=== PATIENT | male | born 1955 | race Caucasian/White ===

== ENCOUNTER 2017-03-19 14:30 | Emergency (ER) | payer OTHER ==
[~2017-03-19] VITALS: Ht 180.3 cm; Wt 83.9 kg
[2017-03-19 14:36] VITALS: Ht 180.3 cm; Wt 83.9 kg
[2017-03-19] MEDS ORDERED: LOSA50TA6 PO (14:54)
[2017-03-19] MEDS ORDERED: AMLO2.5T PO (14:54)
--- NOTE | 2017-03-19 14:55 | EMERGENCY ROOM VISIT NOTE ---
History First contact with patient: 14:39 Chief Complaint: MEDICATION REFILL REQUEST Stated Complaint: MEDICATION REFILL History of Present Illness The patient is a 62 year old male who presents to the Emergency Room requesting a refill of his blood pressure medication. The patient presents with his son-in -law. He has been visiting for the past 3 months and is returning to [facility] in 10 days. He takes amlodipine/losartan and only has 6 pills left. He is requesting an additional prescription to last him until he returns home and can buy the medication. He asked the pharmacy, but they told him he would need a prescription for this. He denies any chest pain, shortness of breath, headache or confusion. Review of Systems A complete 10 point review of systems was reviewed with the patient with pertinent positives and negatives as per history of present illness. All else were negative. Social History Smoking Status: Never Smoker Physical Exam Vital Signs Date Time Temp Pulse Resp B/P (MAP) Pulse Ox O2 Delivery O2 Flow Rate FiO2 03/19/17 14:36 36.7 74 16 164/89 96 Room Air Physical Exam VITALS: Vitals are noted on the nurse's note and reviewed by myself. Vital signs stable. GENERAL: This is a 62-year-old male, in no acute distress, nondiaphoretic, well- developed well-nourished. HEART: Regular rate and rhythm without murmurs gallops or rubs. LUNGS: Clear to auscultation bilaterally without wheezes, rales or rhonchi. NEURO: Patient was alert and oriented to person place and time. Medical Decision & Procedures Medical Decision The patient was evaluated as above. He has the remaining medication with him. He takes amlodipine 2.5/losartan 50 mg daily for hypertension. He was given an additional prescription for 1 week worth of medication. He is asymptomatic at this time. He was encouraged to follow-up with his primary care provider when he returns to [facility]. He verbalized understanding and was discharged home in good condition. Medication Reconcilliation Current Medication List: was personally reviewed by me Blood Pressure Screening Patient's blood pressure: Elevated blood pressure Blood pressure disposition: Elevated BP felt to be situational Impression Primary Impression: Encounter for medication refill Departure Information Dispostion Home / Self-Care Condition GOOD Prescriptions Losartan Potassium (COZAAR) 50 Mg Tab 1 TAB PO DAILY for 7 Days, #7 TAB Prov: Keshia Culp PA-C 03/19/17 Amlodipine (Norvasc) 2.5 Mg Tab 2.5 MG PO DAILY for 7 Days, #7 TAB Prov: Keshia Culp PA-C 03/19/17 Referrals No Doctor, Assigned (PCP) Patient Instructions My [facility] Additional Instructions Take 1 tablet of the amlodipine and 1 tablet of the losartan daily. The combination medication that he take is not available in the [place]. This is likely need to take 2 medications instead of 1. Follow-up with your primary care provider when you return to [facility].
[2017-03-19] MEDS ORDERED: ASMONEX PO (14:57)
[2017-03-19 15:03] VITALS: BP 164/89; PULSE 74; TEMP 36.7; O2SAT 96
== END 2017-03-19 15:04 | disposition home or self-care (01) ==
LOC: C.EDB 14:33 → C.EDD 15:04
DX: Z76.0 Encounter for issue of repeat prescription (principal)